=== PATIENT | male | born 1935 | race Caucasian/White ===

== ENCOUNTER → 2020-10-16 13:10 | Outpatient (CLI) | payer MEDICARE, SELFPAY ==
--- NOTE | ~2020-10-16 | CT_ITS ---
EXAMINATION: CT chest wo/w con EXAM DATE: 10/16/2020 13:51 INDICATION: History of COVID, abnormal chest xray. TECHNIQUE: Spiral CT of the chest without contrast followed by with intravenous injection of 75 mL Om nipaque 350. Axial, coronal and sagittal images were reviewed. Coronal maximum intensity pixel imag es of chest reviewed. The dose-length product (DLP) for this examination was 388.06 mGy-cm. The exp osure was tailored according to patient size (auto mA exposure control), and iterative reconstruction (ASIR) was used as additional dose reduction technique. There is no prior study for comparison. FINDINGS: Moderate amount of posterior and basilar predominant groundglass acute airspace disease, c onsistent with acute infection or edema. Some small more confluent basilar opacities, and a more foca l right basilar nodular opacity measuring 1.2 cm. Could be regions of confluent infection but follow- up CT is recommended in 3 months to exclude possibility of cancer. There is small left pleural effusi on. Mild cardiomegaly. The ascending aorta measures 4.5 cm, mildly aneurysmal. Aortic arch measures 4.3 cm. No thoracic aort ic dissection. There is bilateral gynecomastia. Lungs are moderately hyperinflated. Tracheobronchial tree is patent. There is no mediastinal, hilar or axillary lymphadenopathy. There is no pneumotho rax. There are likely coronary arterial stent or stents. Correlate with prior cardiac history. Upp er abdomen is unremarkable. There is thoracic spondylosis without osteoblastic or osteolytic lesion s identified. IMPRESSION: 1. Moderate amount of bilateral infection or edema. Possible COVID pneumonia. 2. Right lower lobe nodular opacity for which follow-up CT recommended in 3 months. 3. Mildly aneurysmal thoracic aorta. 4. Small left pleural effusion. 5. Cardiomegaly. 6. Hyperinflation. 7. Gynecomastia. Reviewed, dictated and finalized at location B. [employer] IMPRESSION: 1. Moderate amount of bilateral infection or edema. Possible COVID pneumonia. 2. Right lower lobe nodular opacity for which follow-up CT recommended in 3 mo nths. 3. Mildly aneurysmal thoracic aorta. 4. Small left pleural effusion. 5. Cardiomegaly. 6. Hyperinflation. 7. Gynecomastia.
[2020-10-16 13:33] LABS: Estimated Glomerular Filt Rate > 60
== END ==
PROVIDERS: PCP Student in an Organized Health Care Education/Training Program; Visit Provider Student in an Organized Health Care Education/Training Program
DX: R93.89 Abnormal findings on diagnostic imaging of other specified body structures (principal); Z86.16 Personal history of COVID-19; R91.8 Other nonspecific abnormal finding of lung field; J90 Pleural effusion, not elsewhere classified; N62 Hypertrophy of breast; I71.2 Thoracic aortic aneurysm, without rupture
CPT/HCPCS: 71270; Q9967

== ENCOUNTER → 2021-02-05 12:46 | Outpatient (CLI) | payer MEDICARE, SELFPAY ==
--- NOTE | ~2021-02-05 | CT_ITS ---
EXAMINATION: CT diagnostic chest wo/w con EXAM DATE: 02/05/2021 14:06 INDICATION: History of COVID-19, abnormal chest xray 3mo ago. TECHNIQUE: Spiral CT of the chest without contrast. HRCT. Axial, coronal and sagittal images of the chest were reviewed. Coronal maximum intensity pixel images of chest reviewed. Patient was then inje cted with 75 cc Omnipaque 350 intravenous contrast and reimaged. Postcontrast axial, coronal, sagitt al reformatted images reviewed. The dose-length product (DLP) for this examination was 477.59 mGy-cm. The exposure was tailored according to patient size (auto mA exposure control), and iterative recon struction (ASIR) was used as additional dose reduction technique. Comparison is made to prior examina tion from 10/16/2020. FINDINGS: There is been improvement in previously seen groundglass airspace disease, essentially wit h resolution on the left but some persistent groundglass opacity in the right upper and lower lobes. There are regions of interlobular septal thickening, interstitial lung disease. There is some chronic hyperinflation and emphysema. Bronchiectasis. Ascending aortic aneurysm measuring up to 4.6 cm. No d issection on the postcontrast sequence. No central pulmonary emboli. The main, central pulmonary yrn whitney are dilated which can indicate elevated pulmonary arterial pressure, pulmonary arterial hyperten nat. Only trace left pleural effusion, improvement compared to previous exam. Tracheobronchial tr ee is patent. There is no mediastinal, hilar or axillary lymphadenopathy. There is no pneumothora x. Cardiomegaly. Gynecomastia. Upper abdomen is unremarkable. There is thoracic spondylosis with out osteoblastic or osteolytic lesions identified. IMPRESSION: 1. Persistent groundglass opacities on the right. Resolution of left-sided similar-appearing acute a irspace disease. 2. Cardiomegaly. Pulmonary arterial hypertension. 3. Ascending aortic 4.6 cm aneurysm. No dissection. 4. Emphysema, hyperinflation, bronchiectasis. 5. Mild interstitial lung disease. Reviewed, dictated and finalized at location B. IMPRESSION: 1. Persistent groundglass opacities on the right. Resolution of left-sided sim ilar-appearing acute airspace disease. 2. Cardiomegaly. Pulmonary arterial hypertension. 3. Ascending aortic 4.6 cm aneurysm. No dissection. 4. Emphysema, hyperinflation, bronchiectasis. 5. Mild interstitial lung disease.
[2021-02-05 13:19] LABS: Estimated Glomerular Filt Rate > 60
== END ==
PROVIDERS: PCP Student in an Organized Health Care Education/Training Program; Visit Provider Student in an Organized Health Care Education/Training Program
DX: R93.89 Abnormal findings on diagnostic imaging of other specified body structures (principal); Z86.16 Personal history of COVID-19; I51.7 Cardiomegaly; I71.4 Abdominal aortic aneurysm, without rupture; J43.9 Emphysema, unspecified; J84.9 Interstitial pulmonary disease, unspecified
CPT/HCPCS: 71270; Q9967

== ENCOUNTER 2021-05-28 16:08 | Outpatient (NON) | payer MEDICARE, SELFPAY ==
[2021-05-28 17:34] LABS: Add Urine Microscopic? YES; Appearance Urine Clear (Clear); Bilirubin Urine Negative (Negative); Blood Urine Negative (Negative); Color Urine Yellow (Yellow); Glucose Urine UA Negative (Negative); Ketones Urine Negative (Negative); Leukocyte Esterase Ur 1+ LEU/UL (Negative); Nitrate Urine Negative (Negative); Protein Urine Negative (Negative); Specific Grav Ur 1.008 (1.001-1.035); Urobilinogen Urine Negative mg/dL (<2.0)
== END 2021-05-28 16:09 | disposition home or self-care (01) ==
LOC: HOME HLTH 16:17
PROVIDERS: PCP Student in an Organized Health Care Education/Training Program; Visit Provider Student in an Organized Health Care Education/Training Program
DX: D64.9 Anemia, unspecified (principal); I10 Essential (primary) hypertension; S06.9X0D Unspecified intracranial injury without loss of consciousness, subsequent encounter; S72.352D Displaced comminuted fracture of shaft of left femur, subsequent encounter for closed fracture with routine healing; X58.XXXD Exposure to other specified factors, subsequent encounter
CPT/HCPCS: 81001

== ENCOUNTER 2021-06-02 13:44 | Outpatient (NON) | payer MEDICARE, SELFPAY ==
[2021-06-02 14:36] LABS: Basophils Percent Auto 0.6 % (0.2-1.2); Eosinophils Absolute Auto 0.2 K/mm3 (0-0.3); Eosinophils Percent Auto 2.5 % (0-4.4); Hematocrit 36.7 % (42.0-52.0); Hemoglobin 11.1 g/dL (14.0-18.0); Immature Granulocyte Absolute 0.02 K/mm3 (0.00-0.031); Immature Granulocyte Percent A 0.3 % (0-0.5); Lymphocytes Absolute Auto 0.87 K/mm3 (0.9-3.2); Mean Corpuscular HGB Conc 30.2 g/dl (32-36); Mean Corpuscular Hemoglobin 29.4 pg (26-34); Mean Corpuscular Volume 97.1 fl (80-100); Mean Platelet Volume 9.6 fl (7.4-10.4); Monocytes Absolute Auto 0.5 K/mm3 (0.1-0.6); Monocytes Percent Auto 8.1 % (2.6-8.5); Neutrophils Percent Auto 75.5 % (45.5-73.1); Platelet Count Result 305 k/mm3 (150-375); Red Blood Count 3.78 M/mm3 (4.6-6.20); Red Cell Distribution Width 14.6 % (11.5-14.5); White Blood Count 6.7 K/mm3 (4.5-10.0)
[2021-06-02 14:51] LABS: Alanine Aminotransferase 15 U/L (4-50); Albumin Level 3.8 g/dL (3.5-5.1); Alkaline Phosphatase 129 U/L (38-126); Anion Gap 11 mmol/L (8-16); Aspartate Amino Transferase 30 U/L (17-59); Bilirubin,Total 0.3 mg/dL (0.2-1.3); Blood Urea Nitrogen 23 mg/dL (9-20); Calcium 9.9 mg/dL (8.4-10.2); Carbon Dioxide 30 mmol/L (22-30); Chloride 98 mmol/L (98-107); Estimated Glomerular Filt Rate > 60; Glucose 131 mg/dL (65-110); Potassium 4.2 mmol/L (3.4-5.0); Sodium 139 mmol/L (137-145)
== END 2021-06-02 13:45 | disposition home or self-care (01) ==
PROVIDERS: PCP Student in an Organized Health Care Education/Training Program; Visit Provider Student in an Organized Health Care Education/Training Program
DX: D64.9 Anemia, unspecified (principal); S72.352D Displaced comminuted fracture of shaft of left femur, subsequent encounter for closed fracture with routine healing; S06.5X9A Traumatic subdural hemorrhage with loss of consciousness of unspecified duration, initial encounter; X58.XXXA Exposure to other specified factors, initial encounter; X58.XXXD Exposure to other specified factors, subsequent encounter
CPT/HCPCS: 80053; 85025

== ENCOUNTER 2021-07-29 16:57 | Outpatient (CLI) | payer MEDICARE, SELFPAY ==
[2021-07-29 17:56] LABS: Basophils Percent Auto 0.4 % (0.2-1.2); Eosinophils Absolute Auto 0.1 K/mm3 (0-0.3); Eosinophils Percent Auto 1.1 % (0-4.4); Hematocrit 36.8 % (42.0-52.0); Hemoglobin 11.4 g/dL (14.0-18.0); Immature Granulocyte Absolute 0.02 K/mm3 (0.00-0.031); Immature Granulocyte Percent A 0.4 % (0-0.5); Lymphocytes Percent Auto 18.5 % (18.3-44.2); Mean Corpuscular Hemoglobin 29.1 pg (26-34); Mean Corpuscular Volume 93.9 fl (80-100); Mean Platelet Volume 9.6 fl (7.4-10.4); Monocytes Absolute Auto 0.4 K/mm3 (0.1-0.6); Monocytes Percent Auto 7.4 % (2.6-8.5); Neutrophils Absolute Auto 3.9 K/mm3 (1.3-6.7); Neutrophils Percent Auto 72.2 % (45.5-73.1); Platelet Count Result 196 k/mm3 (150-375); Red Blood Count 3.92 M/mm3 (4.6-6.20); Red Cell Distribution Width 14.1 % (11.5-14.5); White Blood Count 5.4 K/mm3 (4.5-10.0)
[2021-07-29 18:03] LABS: Add Urine Microscopic? YES; Appearance Urine Clear (Clear); Bilirubin Urine Negative (Negative); Color Urine Yellow (Yellow); Glucose Urine UA Negative (Negative); Ketones Urine Negative (Negative); Leukocyte Esterase Ur Trace LEU/UL (Negative); Mucus Urine Rare /lpf; Nitrate Urine Negative (Negative); Protein Urine Negative (Negative); RBC Urine 0-2 /hpf (0-2); Specific Grav Ur 1.013 (1.001-1.035); Urobilinogen Urine Negative mg/dL (<2.0)
[2021-07-29 18:04] LABS: Blood Urine Negative (Negative)
[2021-07-29 18:11] LABS: Alanine Aminotransferase 13 U/L (4-50); Albumin Level 4.1 g/dL (3.5-5.1); Alkaline Phosphatase 101 U/L (38-126); Anion Gap 7 mmol/L (8-16); Aspartate Amino Transferase 29 U/L (17-59); Bilirubin,Total 0.3 mg/dL (0.2-1.3); Blood Urea Nitrogen 20 mg/dL (9-20); Calcium 10.3 mg/dL (8.4-10.2); Carbon Dioxide 33 mmol/L (22-30); Chloride 103 mmol/L (98-107); Estimated Glomerular Filt Rate > 60; Glucose 128 mg/dL (65-110); Potassium 4.5 mmol/L (3.4-5.0); Sodium 143 mmol/L (137-145)
== END 2021-07-29 16:58 | disposition home or self-care (01) ==
LOC: ANHLAB 17:01
PROVIDERS: PCP Student in an Organized Health Care Education/Training Program; Visit Provider Student in an Organized Health Care Education/Training Program
DX: R42 Dizziness and giddiness (principal); R53.83 Other fatigue
CPT/HCPCS: 36415; 80053; 81001; 84443; 85025; 87077; 87086; 87088; 87186

== ENCOUNTER 2021-08-24 13:30 | Outpatient (RCR) | payer MEDICARE, SELFPAY ==
--- NOTE | 2021-07-24 13:39 | PTOPEVAL ---
PHYSICAL THERAPY EVALUATION AND PLAN OF CARE 07-24-21 Thank you for referring Jason Nair to [facility].? Choco is scheduled to be seen for therapy? 2 x/week for 4 weeks. Please review, sign, date and return this plan of care FIOR. I agree with and certify that the following plan of care is medically necessary. Referring Physician Date Attending Provider: Samuel Graves MD PT Outpatient Evaluation Document 07/24/21 12:35 JESIKA (Rec: 07/24/21 13:39 JESIKA [id number]) Outpatient Past Medical History Past Medical History Source of Past Medical History Patient,Family/Significant Other Neurological History Hx Neurological Disorders No Significant History Cardiovascular History Hx Heart Murmur Yes: monitoring Hx Other Cardiac Disorders Yes: valve issues, not going to have surgery Respiratory History Hx COVID-19 Yes: Aug 2020, had vaccine Gastrointestinal History Hx Other Gastrointestinal Disorders Yes: feeding tube for 1 yr due to aspiration pneumonai Musculoskeletal History Hx Back Pain Yes: back surgery 2x Hx Joint Replacement Yes: R THR, Hx Orthopedic Surgery Yes: B elbow ORIF,L femur as child;L ankle ORIF;R tibial fracture Hx Other Musculoskeletal Disorders Yes: L shoe lift due to hip injury as child Endocrine History Hx Endocrine Disorders No Significant History Evaluation Information Problem Diagnosis L femur fracture with ORIF due to fall Onset April 23, 2021 Subjective Information had PT in the hospital, in pt Query Text:As Reported By Patient/ rehab/SNF, home health therapy Family ; completed home health few weeks ago; doing HEP from previous therapy, 10-15 reps: standing hip & balance exercises Prior Level of Function Activity Level (Last 3 Months) Occupation retired Activity of Daily Living Ability Independent Indoor/Home Mobility Independent Community Mobility Not-Applicable Stairs Ability Not-Applicable Functional Cognition (Planning, Shopping Independent , Taking Medications) Cooking Yes Cleaning Yes Laundry Yes Shopping No Driving Yes Home Setting Home Type House,Multiple Levels Environmental Barriers Ramp,Stairs, 2-4 Living Situation With Spouse Sup
--- NOTE | 2021-08-06 10:42 | PCPTNOTE ---
Patient called & cancelled scheduled appointment this date due to soreness from a fall yesterday on his sidewalk at home.
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
== END 2021-08-25 09:30 | disposition home or self-care (01) ==
LOC: ANHPT 13:30
PROVIDERS: PCP Student in an Organized Health Care Education/Training Program
DX: S72.352D Displaced comminuted fracture of shaft of left femur, subsequent encounter for closed fracture with routine healing (principal)
CPT/HCPCS: 97110; 97161

== ENCOUNTER → 2022-02-16 15:37 | Outpatient (CLI) | payer MEDICARE, SELFPAY ==
--- NOTE | ~2022-02-16 | CT_ITS ---
EXAMINATION:CT diagnostic chest wo con DATE: 02/16/2022 16:01 INDICATION: Ascending aortic aneurysm. TECHNIQUE: Computed tomography (CT) of the chest was performed without intravenous contrast. Automate d exposure control and iterative reconstruction technique were employed. The dose-length product (DLP ) was 166.55 mGy-cm. COMPARISON: Chest CT 02/05/2021 FINDINGS: There are chronic peripheral airspace opacities at the lung apices, consistent with scarrin g. There are chronic groundglass and airspace opacities in posterior segment right upper lobe, superi or segment right lower lobe, and basilar right lower lobe. There is widespread peripheral septal thic kening in the lungs. No bronchiectasis or honeycombing. No pleural effusion. Cardiomegaly is noted. T here are coronary artery calcifications. No pericardial effusion. The aorta measures 4.0 cm at the si nuses of Valsalva, 3.4 cm at the sinotubular junction, 4.3 cm in the mid ascending aorta, 4.1 cm at t he aortic isthmus, and 3.5 cm in the mid descending aorta. The central pulmonary arteries are enlarge d, consistent with pulmonary arterial hypertension. There is bilateral gynecomastia. There is kyphosi s and moderate spondylosis of thoracic spine. There is mild chronic anterior wedging of multiple vert ebral bodies. There is a compression fracture of T10, new from 02/05/2021, likely acute. IMPRESSION: 1. Ectasia of thoracic aorta measuring up to 4.3 cm. 2. Cardiomegaly. 3. Chronic interstitial lung disease in a pattern of nonspecific interstitial pneumonia (NSIP). Reviewed, dictated and finalized at location B. IMPRESSION: 1. Ectasia of thoracic aorta measuring up to 4.3 cm. 2. Cardiomegaly. 3. Chronic interstitial lung disease in a pattern of nonspecific interstitial p neumonia (NSIP).
== END ==
PROVIDERS: PCP Student in an Organized Health Care Education/Training Program; Visit Provider Student in an Organized Health Care Education/Training Program
DX: I71.4 Abdominal aortic aneurysm, without rupture (principal); I51.7 Cardiomegaly; J84.9 Interstitial pulmonary disease, unspecified
CPT/HCPCS: 71250